=== PATIENT | female | born 1995 | race Two or more races ===

== ENCOUNTER 2018-01-22 16:47 | Emergency (ER) | payer OTHER ==
[~2018-01-22] VITALS: Ht 162.6 cm; Wt 59.0 kg
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
[2018-01-22 17:17] VITALS: BP 133/78
== END 2018-01-22 17:20 | disposition left against medical advice (07) ==
LOC: EDBD 16:47 → EMR 17:16
DX: O26.891 Other specified pregnancy related conditions, first trimester (principal); R51 Headache; Z53.21 Procedure and treatment not carried out due to patient leaving prior to being seen by health care provider
CPT/HCPCS: 99283